=== PATIENT | female | born 1990 ===

== ENCOUNTER 2016-11-28 13:05 | Emergency (ER) | payer OTHER ==
[2016-11-28 13:34] VITALS: O2SAT 100
--- NOTE | 2016-11-28 14:15 | C.PDOC ---
History Of Present Illness 11/28/2016 Pt is a 26 year old female, who presents to the emergency department complaining of vaginal bleeding and lower abdominal cramping since last night. Patient reports that 1.5 weeks ago she took a test and was positive. Her last menstrual cycle was on 10/20/2016 and since then has been noticing blood spots, but it became worse last night. Patient notes she has a scheduled appointment with her OBGYN on 12/01/2016 but since the bleeding became worse she decided to come to the ED. Patient also states she recently has used seven pads a day. Patient denies any shortness of breath, vomiting, dysuria, chest pain, headache or other complaints. 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 Time Seen by Provider: 11/28/16 14:01 Chief Complaint (Nursing): Female Genitourinary History Per: Patient History/Exam Limitations: no limitations Onset/Duration Of Symptoms: Worse Since (last night) Current Symptoms Are (Timing): Still Present Associated Symptoms: denies: Fever, Nausea, Vomiting, Diarrhea, Chest Pain Alleviating Factors: None Abnormal Vaginal Bleeding: Yes Last Menstral Period: 10/20/2016 : 5 Para: 2 Miscarriage: 2 (1 miscarriage 1 ) Past Medical History Reviewed: Historical Data, Nursing Documentation, Vital Signs Vital Signs: Last Vital Signs Temp 98.0 F 11/28/16 15:55 Pulse 68 11/28/16 15:55 Resp 18 11/28/16 15:55 BP 112/72 11/28/16 15:55 Pulse Ox 100 11/28/16 15:55 - Medical History PMH: No Chronic Diseases Family History: States: Unknown Family Hx - Social History Hx Tobacco Use: Yes Hx Substance Use: No - Immunization History Hx Tetanus Toxoid Vaccination: No Hx Influenza Vaccination: No Hx Pneumococcal Vaccination: No Review Of Systems Constitutional: Negative for: Fever Cardiovascular: Negative for: Chest Pain Respiratory: Negative for: Shortness of Breath Gastrointestinal: Negative for: Nausea, Vomiting, Abdominal Pain Genitourinary: Positive for: Vaginal Bleeding. Negative for: Dysuria Neurological: Negative for: Dizziness Physical Exam - Physical Exam Appears: Well, Non-toxic, No Acute Distress Skin: Normal Color, Warm, Dry Head: Atraumatic, Normacephalic Eye(s): bilateral: Normal Inspection, PERRL, EOMI Ear(s): Bilateral: Normal Nose: Normal Lips: Normal Appearing Throat: Normal Neck: Normal Cardiovascular: Rhythm Regular Respiratory: Normal Breath Sounds Gastrointestinal/Abdominal: Normal Exam, Bowel Sounds, Soft, No Tenderness Rectal: Deferred Back: Normal Inspection Pelvic: Vaginal Bleeding (scant blood in vault), Cervical Motion Tenderness ( mild), Other ( Os closed. Billet Header: Lizziejuly WhittenMeredith and Annaea Nichole) Extremity: Normal ROM Extremity: Bilateral: Atraumatic ED Course And Treatment - Laboratory Results Result Diagrams: 11/28/16 14:28 11/28/16 14:28 O2 Sat by Pulse Oximetry: 100 (room air) Pulse Ox Interpretation: Normal Medical Decision Making Medical Decision Makin11/28/2016 Impression: Vaginal bleeding Plan: -- Ultrasound -- Urinalysis -- Labs -- Reassess and disposition Progress Notes: Our beta-HCG is negative, and our POC UCG is negative. Patient is not but reports positive home UCG 1.5 wks ago. Pt must have had an early and had a spontaneous miscarriage. 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 11/28/2016 15:10 Ultrasound: Creator : Israel Natarajan MD FINDINGS: UTERUS: Measures 9.2 x 4.9 x 6.5 cm. Normal in size and appearance. No fibroid or other mass lesion seen. ENDOMETRIUM: Measures 4 mm in diameter. No intrauterine gestational sac identified. CERVIX: No cervical abnormality identified. RIGHT OVARY: Measures 3.3 x 2.1 x 3.7 cm. No solid mass. Normal flow. LEFT OVARY: Measures 2.8 x 2.1 x 2.8 cm. No solid mass. Normal flow. FREE FLUID: No significant free fluid noted. OTHER FINDINGS: None. IMPRESSION: No intrauterine gestation identified. If is confirmed with serum beta HCG, the possibility of ectopic gestation must be considered in the absence of an intrauterine gestation. Disposition - Disposition Referrals: [facility] [Outside] Disposition: HOME/ ROUTINE Disposition Time: 15:44 Condition: STABLE Additional Instructions: Dawn, thank you for letting us take care of you today. Return to the ER if your symptoms worsen, or if any problems. Please follow up with your Maintenance Shop Technician this Wednesday as originally scheduled. Take Tylenol or Motrin for pain. Instructions: Spontaneous Miscarriage (ED) Forms: [employer] (Greek) Print Language: MONGOLIAN - POA Present On Arrival: None - Clinical Impression Clinical Impression: Spontaneous miscarriage - Scribe Statement The provider has reviewed the documentation as recorded by the Scribe 11/28/2016 Scribe Attestation: Lizzie Harper MD Scribe Attestation: All medical record entries made by the Scribe were at my direction and personally dictated by me. I have reviewed the chart and agree that the record accurately reflects my personal performance of the history, physical exam, medical decision making, and the department course for this patient. I have also personally directed, reviewed, and agree with the discharge instructions and disposition.
[2016-11-28 14:41] LABS: BASO % 0.3 % (0.0-2.0); EOS # 0.1 K/uL (0.0-0.7); HEMATOCRIT 39.8 % (34.0-47.0); LYMPH # 2.1 K/uL (1.0-4.3); LYMPH % 30.1 % (20.0-40.0); MEAN CELL VOLUME 87.9 fL (81.0-99.0); MEAN CORPUSCULAR HEMOGLOBIN 28.7 pg (27.0-31.0); MEAN CORPUSCULAR HGB CONC 32.7 g/dL (33.0-37.0); MEAN PLATELET VOLUME 9.9 fL (7.2-11.7); MONO # 0.5 K/uL (0.0-0.8); MONO % 6.6 % (0.0-10.0); NRBC % 0.1 % (0.0-2.0); RED CELL DISTRIBUTION WIDTH 14.1 % (11.5-14.5); WHITE BLOOD COUNT 6.8 K/uL (4.8-10.8)
[2016-11-28 14:44] LABS: RBC URINE 2573 /hpf (0-3); URINE BILIRUBIN NEGATIVE (NEGATIVE); URINE BLOOD 3+ (NEGATIVE); URINE COLOR Yellow (YELLOW); URINE GLUCOSE (UA) NORMAL (Normal); URINE KETONE NEGATIVE (NEGATIVE); URINE LEUKOCYTE ESTERASE NEG Leu/uL (Negative); URINE PROTEIN 1+ mg/dL (NEGATIVE); URINE UROBILINOGEN NORMAL mg/dL (0.2-1.0); WBC URINE 15 /hpf (0-5)
[2016-11-28 14:45] LABS: CHLORIDE 109 mmol/L (98-107); SODIUM 140 mmol/L (132-148)
[2016-11-28 14:46] LABS: POTASSIUM 4.1 mmol/L (3.6-5.2)
[2016-11-28 14:48] LABS: ALB/GLOB RATIO 1.3 (1.0-2.1); ALKALINE PHOSPHATASE 63 U/L (38-126); ALT/SGPT 29 U/L (9-52); AST/SGOT 22 U/L (14-36); BILIRUBIN,TOTAL 0.6 mg/dL (0.2-1.3); BLOOD UREA NITROGEN 12 mg/dL (7-17); CARBON DIOXIDE 20 mmol/L (22-30); GFR AFRICAN-AMERICAN > 60; TOTAL PROTEIN 7.2 g/dL (6.3-8.3)
[2016-11-28 14:49] LABS: CALCIUM 9.1 mg/dl (8.6-10.4); GLUCOSE,RANDOM 84 mg/dL (65-105)
--- NOTE | 2016-11-28 15:10 | US ---
HISTORY: w/ vag bleeding COMPARISON: None available. TECHNIQUE: Transabdominal and transvaginal FINDINGS: UTERUS: Measures 9.2 x 4.9 x 6.5 cm. Normal in size and appearance. No fibroid or other mass lesion seen. ENDOMETRIUM: Measures 4 mm in diameter. No intrauterine gestational sac identified. CERVIX: No cervical abnormality identified. RIGHT OVARY: Measures 3.3 x 2.1 x 3.7 cm. No solid mass. Normal flow. LEFT OVARY: Measures 2.8 x 2.1 x 2.8 cm. No solid mass. Normal flow. FREE FLUID: No significant free fluid noted. OTHER FINDINGS: None. IMPRESSION: No intrauterine gestation identified. If is confirmed with serum beta HCG, the possibility of ectopic gestation must be considered in the absence of an intrauterine gestation.
[2016-11-28 16:30] VITALS: BP 112/72; PULSE 68; RESP 18; TEMP 98
== END 2016-11-28 15:55 | disposition home or self-care (01) ==
LOC: C.ER 13:05
DX: O03.9 Complete or unspecified spontaneous abortion without complication (principal)

== ENCOUNTER 2017-01-31 10:43 | Emergency (ER) | payer SELFPAY ==
[2017-01-31 11:33] LABS: BASO % 0.4 % (0.0-2.0); EOS # 0.1 K/uL (0.0-0.7); EOS % 0.8 % (0.0-4.0); HEMATOCRIT 37.3 % (34.0-47.0); LYMPH # 1.8 K/uL (1.0-4.3); LYMPH % 23.8 % (20.0-40.0); MEAN CELL VOLUME 87.3 fL (81.0-99.0); MEAN CORPUSCULAR HGB CONC 33.2 g/dL (33.0-37.0); MEAN PLATELET VOLUME 10.1 fL (7.2-11.7); MONO # 0.5 K/uL (0.0-0.8); RED CELL DISTRIBUTION WIDTH 14.6 % (11.5-14.5); WHITE BLOOD COUNT 7.6 K/uL (4.8-10.8)
[2017-01-31 11:42] LABS: CHLORIDE 104 mmol/L (98-107); POTASSIUM 3.6 mmol/L (3.6-5.2); SODIUM 134 mmol/L (132-148)
[2017-01-31 11:44] LABS: ALB/GLOB RATIO 1.6 (1.0-2.1); ALKALINE PHOSPHATASE 49 U/L (38-126); ALT/SGPT 31 U/L (9-52); AST/SGOT 14 U/L (14-36); BILIRUBIN,TOTAL 0.7 mg/dL (0.2-1.3); BLOOD UREA NITROGEN 12 mg/dL (7-17); CARBON DIOXIDE 18 mmol/L (22-30); GFR AFRICAN-AMERICAN > 60; TOTAL PROTEIN 6.3 g/dL (6.3-8.3)
[2017-01-31 11:45] LABS: CALCIUM 8.5 mg/dl (8.6-10.4); GLUCOSE,RANDOM 95 mg/dL (65-105)
[2017-01-31 11:56] LABS: URINE COLOR Yellow (YELLOW)
[2017-01-31 11:57] LABS: RBC URINE 9 /hpf (0-3); URINE BACTERIA OCC (<OCC); URINE BILIRUBIN NEGATIVE (NEGATIVE); URINE BLOOD 2+ (NEGATIVE); URINE GLUCOSE (UA) NORMAL (Normal); URINE KETONE NEGATIVE (NEGATIVE); URINE LEUKOCYTE ESTERASE NEG Leu/uL (Negative); URINE PROTEIN NEGATIVE (NEGATIVE); URINE UROBILINOGEN NORMAL mg/dL (0.2-1.0); WBC URINE 2 /hpf (0-5)
--- NOTE | 2017-01-31 12:56 | C.PDOC ---
History Of Present Illness 26 year old female, who is currently around 6 weeks gestational age without care, presents to the ED for evaluation of intermittent vaginal spotting which began 1 week ago. Patient states the spotting worsened and progressed to heavy bleeding yesterday. Patient states her symptoms have returned to spotting today and presents for further evaluation. Patient also reports urinary frequency and denies fever, chills, abdominal pain, dysuria or changes to her chronic back pain at this time. Time Seen by Provider: 01/31/17 10:55 Chief Complaint (Nursing): Female Genitourinary History Per: Patient History/Exam Limitations: no limitations Onset/Duration Of Symptoms: Days (1 week ), Intermittent Episodes Current Symptoms Are (Timing): Still Present Quality Of Discomfort: denies: "Pain" Associated Symptoms: denies: Fever, Chills Additional History Per: Patient Abnormal Vaginal Bleeding: Yes : 5 Para: 2 Past Medical History Reviewed: Historical Data, Nursing Documentation, Vital Signs Vital Signs: Last Vital Signs Temp 98.3 F 01/31/17 14:33 Pulse 62 01/31/17 14:33 Resp 18 01/31/17 14:33 BP 110/62 01/31/17 14:33 Pulse Ox 95 01/31/17 14:40 Surgical History: No Surg Hx Family History: States: Unknown Family Hx, Diabetes, Hypertension - Social History Hx Tobacco Use: Yes Hx Alcohol Use: Yes Hx Substance Use: No - Immunization History Hx Tetanus Toxoid Vaccination: Yes (03/2016) Hx Influenza Vaccination: No Hx Pneumococcal Vaccination: No Review Of Systems Constitutional: Negative for: Fever, Chills Gastrointestinal: Negative for: Abdominal Pain Genitourinary: Positive for: Frequency, Vaginal Discharge, Vaginal Bleeding. Negative for: Dysuria Physical Exam - Physical Exam Appears: Non-toxic, No Acute Distress Skin: Normal Color, Warm, Dry Head: Atraumatic, Normacephalic Eye(s): bilateral: Normal Inspection, EOMI Nose: Normal Oral Mucosa: Moist Neck: Normal ROM, Supple Chest: Symmetrical, No Deformity, No Tenderness Cardiovascular: Rhythm Regular, No Murmur Respiratory: Normal Breath Sounds, No Rales, No Rhonchi, No Wheezing Gastrointestinal/Abdominal: Soft, Tenderness (mild, suprapubic ), No Guarding, No Rebound Extremity: Normal ROM, Capillary Refill (less than 2 seconds ) Neurological/Psych: Oriented x3, Normal Speech, Normal Cognition Gait: Steady ED Course And Treatment - Laboratory Results Result Diagrams: 01/31/17 11:27 01/31/17 11:27 O2 Sat by Pulse Oximetry: 95 (on RA) Pulse Ox Interpretation: Normal - CT Scan/US Obstetrics US Other Rad Studies (CT/US): Interpreted By Me, Read By Radiologist, Radiology Report Reviewed CT/US Interpretation: PROCEDURE: OB Pelvic Ultrasound. HISTORY: bleeding. COMPARISON: None available. FINDINGS: UTERUS: Gestational sac: Single intrauterine gestational sac. Yolk sac is visualized. pole is not seen on the current examination. age (Ultrasound estimated): 5 weeks and 4 days. Jayla-gestational hemorrhage: There is a 2.5 cm heterogeneous predominantly hypoechoic area to the left the gestational sac. Date of delivery (Ultrasound estimated) : 10/01/2017. Uterus measures 11.2 x 5.9 x 6.3 cm. Normal in size and appearance. CERVIX: Long and closed. No cervical abnormality seen. RIGHT OVARY: Measures 3.7 x 2.6 x 3.4 cm. No mass lesion. Normal flow. There is a 1.7 x 1.4 x 1.3 cm cyst. LEFT OVARY: Measures 2.5 x 1.8 x 2.4 cm. No solid mass. Normal flow. FREE FLUID: None. OTHER FINDINGS: None. IMPRESSION: Single live intrauterine gestation with mean gestational age of 5 weeks and 4 days. Yolk sac is visualized however would toward pole is not identified on the current examination due to early . Question of 2.5 cm small subchorionic hemorrhage to the left of the gestational sac. Progress Note: Bloodwork, UA, and Ultrasound ordered and reviewed. Patient is refusing pain medication at this time. On reassessment, patient is resting comfortably, showing no signs of distress and is stable for discharge. Pt drank pitcher off water. Denies vomiting. Discussed hydration. Patient is provided with ultrasound results and is advised to follow up with an vessel builder within 1-2 days for further evaluation and/or return to the ED if symptoms return or worsen. Disposition - Disposition Disposition: HOME/ ROUTINE Disposition Time: 14:25 Condition: STABLE Additional Instructions: Your Beta HCG is 13,855. Follow up with your OB/ ER in 3 days for re- evaluation. Return to ER if symptoms persist or worsen. Instructions: (ED) Forms: [employer] (Hebrew) - Clinical Impression Clinical Impression: First-trimester bleeding - PA / SWIMMING INSTRUCTOR / Resident Statement MD/DO has reviewed & agrees with the documentation as recorded. - Scribe Statement The provider has reviewed the documentation as recorded by the Scribe (Susan Willett) All medical record entries made by the Scribe were at my direction and personally dictated by me. I have reviewed the chart and agree that the record accurately reflects my personal performance of the history, physical exam, medical decision making, and the department course for this patient. I have also personally directed, reviewed, and agree with the discharge instructions and disposition.
--- NOTE | 2017-01-31 14:25 | US ---
PROCEDURE: OB Pelvic Ultrasound HISTORY: bleeding COMPARISON: None available. FINDINGS: UTERUS: Gestational sac: Single intrauterine gestational sac. Yolk sac is visualized. pole is not seen on the current examination. age (Ultrasound estimated): 5 weeks and 4 days Jayla-gestational hemorrhage: There is a 2.5 cm heterogeneous predominantly hypoechoic area to the left the gestational sac. Date of delivery (Ultrasound estimated) : 10/01/2017 Uterus measures 11.2 x 5.9 x 6.3 cm. Normal in size and appearance. CERVIX: Long and closed. No cervical abnormality seen. RIGHT OVARY: Measures 3.7 x 2.6 x 3.4 cm. No mass lesion. Normal flow. There is a 1.7 x 1.4 x 1.3 cm cyst. LEFT OVARY: Measures 2.5 x 1.8 x 2.4 cm. No solid mass. Normal flow. FREE FLUID: None. OTHER FINDINGS: None. IMPRESSION: Single live intrauterine gestation with mean gestational age of 5 weeks and 4 days. Yolk sac is visualized however would toward pole is not identified on the current examination due to early . Question of 2.5 cm small subchorionic hemorrhage to the left of the gestational sac.
[2017-01-31 14:35] VITALS: BP 110/62; PULSE 62; RESP 18; TEMP 98.3
[2017-01-31 14:40] VITALS: O2SAT 95
== END 2017-01-31 14:35 | disposition home or self-care (01) ==
LOC: C.ER 10:43
DX: O46.91 Antepartum hemorrhage, unspecified, first trimester (principal); Z3A.01 Less than 8 weeks gestation of pregnancy

== ENCOUNTER 2017-10-04 09:00 | Emergency (ER) | payer MEDICAID ==
[2017-10-04 09:05] VITALS: BP 98/65; PULSE 74; RESP 18; TEMP 98.4; O2SAT 99
[2017-10-04] MEDS ORDERED: cefTRIAXone 250 MG, Lidocaine Hydrochloride 1% 1 ML IM STA (09:48)
[2017-10-04 10:18] LABS: SQUAMOUS EPITHIAL 18 /hpf (0-5); URINE BACTERIA RARE (<OCC); URINE BILIRUBIN NEGATIVE (NEGATIVE); URINE BLOOD NEGATIVE (NEGATIVE); URINE CLARITY Hazy (Clear); URINE COLOR Yellow (YELLOW); URINE GLUCOSE (UA) NORMAL (Normal); URINE LEUKOCYTE ESTERASE 2+ Leu/uL (Negative); URINE PROTEIN NEGATIVE (NEGATIVE); URINE UROBILINOGEN NORMAL mg/dL (0.2-1.0)
--- NOTE | 2017-10-04 10:59 | C.PDOC ---
History Of Present Illness 27 y/o female presents to the ER complaining of right-sided vaginal pain for 2 weeks. Patient denies any vaginal bleeding/discharge, dysuria/hematuria, abdominal pain, nausea, vomiting, diarrhea. She denies having had similar symptoms in the past. Time Seen by Provider: 10/04/17 09:10 Chief Complaint (Nursing): Female Genitourinary History Per: Patient History/Exam Limitations: no limitations Onset/Duration Of Symptoms: Days Current Symptoms Are (Timing): Still Present Severity: Mild Quality Of Discomfort: "Pain" Past Medical History Reviewed: Historical Data, Nursing Documentation, Vital Signs Vital Signs: Last Vital Signs Temp 98.4 F 10/04/17 09:03 Pulse 74 10/04/17 09:03 Resp 18 10/04/17 09:03 BP 98/65 L 10/04/17 09:03 Pulse Ox 99 10/04/17 11:27 - Medical History PMH: No Chronic Diseases Surgical History: Other Surgeries: Left finger surgery Family History: States: Diabetes, Hypertension - Social History Hx Tobacco Use: Yes Hx Alcohol Use: Yes Hx Substance Use: No - Immunization History Hx Tetanus Toxoid Vaccination: Yes (03/2016) Hx Influenza Vaccination: No Hx Pneumococcal Vaccination: No Review Of Systems Constitutional: Negative for: Fever, Chills Gastrointestinal: Negative for: Nausea, Vomiting, Abdominal Pain, Diarrhea Genitourinary: Positive for: Other (right-sided vaginal pain). Negative for: Dysuria, Hematuria, Vaginal Discharge, Vaginal Bleeding Physical Exam - Physical Exam Appears: Well, Non-toxic, No Acute Distress Skin: Normal Color, Warm, Dry, No Rash Head: Normacephalic Eye(s): bilateral: Normal Inspection Oral Mucosa: Moist Cardiovascular: Rhythm Regular Respiratory: Normal Breath Sounds, No Rales, No Rhonchi, No Wheezing Gastrointestinal/Abdominal: Bowel Sounds, Soft, No Tenderness, No Distention Pelvic: Normal External Exam (No vesicular lesions or swelling of the labia), Normal Bimanual Exam, No Vaginal Bleeding, No Vaginal Discharge, No Cervical Motion Tenderness, No Cervix Open, No Adnexal Tenderness, Other (+ TTP along the right vaginal wall at the 8 oclock position, with no swelling appreciated, no palpable Bartholins abscess/cyst) Extremity: Bilateral: Atraumatic, Normal ROM Neurological/Psych: Oriented x3 ED Course And Treatment O2 Sat by Pulse Oximetry: 99 (RA) Pulse Ox Interpretation: Normal Progress Note: UA, Upreg ordered and reviewed. Patient admits to concern for possible STDs, IM Rocephin and PO Azithromycin given. Suspect patient is developing Bartholin's abscess/cyst, however it is not yet obvious on exam. Patient given Rx for Bactrim, and instructed to apply warm compresses and follow up with her machine brush maker within 1 week. She understands she should return to ED if symptoms worsen. Disposition Counseled Patient/Family Regarding: Studies Performed, Diagnosis, Need For Followup, Rx Given - Disposition Referrals: [facility] [Outside] Disposition: HOME/ ROUTINE Disposition Time: 11:30 Condition: STABLE Additional Instructions: FOLLOW UP WITH YOUR COLLEGE TUTOR WITHIN 1 WEEK USE MEDICATIONS DIRECTED RETURN TO ER IF SYMPTOMS WORSEN Prescriptions: Ibuprofen [Motrin Tab] 600 mg PO Q6 PRN #30 tab PRN Reason: fever/pain Sulfamethoxazole/Trimethoprim [Bactrim DS 800 mg-160 mg] 1 tab PO BID #14 tab Instructions: Bartholin's Gland Cyst Forms: [employer] (Albanian) Print Language: CHINESE - POA Present On Arrival: None - Clinical Impression Clinical Impression: Vaginal pain, Bartholin cyst, UTI (urinary tract infection) - Scribe Statement The provider has reviewed the documentation as recorded by the Alfonso Heaton Provider Attestation: All medical record entries made by the Guidoibrodney were at my direction and personally dictated by me. I have reviewed the chart and agree that the record accurately reflects my personal performance of the history, physical exam, medical decision making, and the department course for this patient. I have also personally directed, reviewed, and agree with the discharge instructions and disposition.
[2017-10-04 11:08] LABS: HCG,QUALITATIVE URINE NEGATIVE (NEGATIVE)
== END 2017-10-04 11:42 | disposition home or self-care (01) ==
LOC: C.ER 09:00
DX: N75.0 Cyst of Bartholin's gland (principal); N39.0 Urinary tract infection, site not specified; R10.2 Pelvic and perineal pain
CPT/HCPCS: 81001; 84703; 96372; 99283; J0696